=== PATIENT | female | born 1955 | race Caucasian/White ===

== ENCOUNTER 2016-10-05 11:04 | Emergency (ER) | payer BC ==
--- NOTE | 2016-10-05 12:59 | UC ---
Back Pain HPI - HPI Summary HPI Summary: 61 female presents with lower back pain that began yesterday 10/04/16 and has gotten worse upon waking up this morning. Patient stated that she was watching her grandchildren and was lifting her out of the swing when she felt that she hurt her back. She later that night lifted her grandchild again and felt pain in her lower back. Denies numbness/tingling, saddle anesthesia and bladder/ bowel incontinence. Limited ROM due to pain in all directions, hard for her to get comfortable. Standing makes the pain somewhat better. She has tried taking 3 Advil this morning without any relief. Has been applying heat which gave her some relief. States the pain is worse when she moves her right leg. Is able to bear weight and able to walk. Hx of arthritis. Points to most pain in the left lower back - History of Current Complaint Chief Complaint: UCBackPain Stated Complaint: BACK PAIN Time Seen by Provider: 10/05/16 12:12 Hx Obtained From: Patient, Family/Clerk Supervisor - Hx Last Menstrual Period: unknown ?: No Onset/Duration: Sudden Onset, Worse Since Timing: Constant Severity Initially: Mild Severity Currently: Moderate Pain Intensity: 6 Pain Scale Used: 0-10 Numeric Character: Sharp, Aching, Throbbing, Spasmodic, Stiffness Aggravating: Movement, Lifting, Bending, Walking Alleviating: Position, Heat Associated Signs And Symptoms: Positive: Negative - Allergies/Home Medications Allergies/Adverse Reactions: Allergies Allergy/AdvReac Type Severity Reaction Status Date / Time Erythromycin [From E-Mycin] AdvReac Intermediate diarrhea, Verified 10/05/16 12: 04 abd pain Home Medications: Home Medications Ibuprofen TAB* [Motrin TAB* 600 MG] 600 mg PO Q6H PRN 10/05/16 [History Confirmed 10/05/16] PMH/Surg Hx/FS Hx/Imm Hx Cardiovascular History Of: Reports: Cardiac Disorders - heart murmur, Hypertension - Surgical History Surgical History: Yes Surgery Procedure, Year, and Place: hysterectomy, bilateral knee replacements - Family History Known Family History: Positive: Hypertension - Social History Alcohol Use: None Substance Use Type: None Smoking Status (MU): Former Smoker Type: Cigarettes Have You Smoked in the Last Year: No When Did the Patient Quit Smoking/Using Tobacco: 20 yrs ago Review of Systems Constitutional: Negative Skin: Negative Eyes: Negative ENT: Negative Respiratory: Negative Cardiovascular: Negative Gastrointestinal: Negative Genitourinary: Negative Motor: Decreased ROM, Weakness Neurovascular: Negative Musculoskeletal: Arthralgia, Myalgia - back Neurological: Negative Psychological: Negative All Other Systems Reviewed And Are Negative: Yes Physical Exam Triage Information Reviewed: Yes Appearance: Well-Appearing, Well-Nourished, Pain Distress Vital Signs: Initial Vital Signs Temp 100.1 F 10/05/16 11:56 Resp 22 10/05/16 11:56 temp re-taken and 98.3F orally Vital Signs Reviewed: Yes Eyes: Positive: Conjunctiva Clear ENT Exam: Normal ENT: Positive: Normal ENT inspection, Hearing grossly normal, Pharynx normal, TMs normal, Tonsillar swelling - right tonsil slightly enlarged when compared to left side, patient admits to mild vague sore throat Dental: Negative: Cervical Lymphadenopathy Neck: Positive: Supple, Nontender Respiratory: Positive: Chest non-tender, Lungs clear, Normal breath sounds, No respiratory distress, No accessory muscle use Cardiovascular: Positive: RRR, No Murmur, Pulses Normal, Brisk Capillary Refill Abdominal Exam: Normal Abdomen Description: Positive: Nontender, No Organomegaly, Soft Bowel Sounds: Positive: Present Musculoskeletal: Positive: No Edema, Strength Limited @ - with flexion, extension, rotation lof lower back and with movement of b/l lower extremities. strength of lower extremities 3/5 due to pain. sensation and skin intact. no signs of obvious deformity, ecchymosis or erythema noted. Foot/toe strength and sensation intact and normal, ROM Limited @ Neurological Exam: Normal Psychological: Positive: Normal Response To Family, Age Appropriate Behavior Skin Exam: Normal Back Pain Course/Dx - Course Course Of Treatment: discussed option of having an x-ray and with PE findings and ABDULAZIZ this did not appear to be skeletal. patient agreed with not needed an x- ray at this time. is aware further imaging and evaluation may need to be taken if symptoms persist. she is already prescribed flexeril for restless leg syndrome and was instructed to start taking it once at night for the back pain. also given pain management for the next 5-7days. rest and heat. instructed to follow up with persistant symptoms despite current treatment. checked with [facility] Reference #: [id number] - Differential Dx/Diagnosis Differential Diagnosis/HQI/PQRI: Herniated Disc, Strain, Sprain Provider Diagnoses: lumbosacral strain Discharge - Discharge Plan Condition: Stable Disposition: HOME Prescriptions: Ibuprofen TAB* [Motrin TAB* 600 MG] 600 mg PO Q6H PRN #10 tab PRN Reason: Pain oxyCODONE/Acetamin 5/325 MG* [Percocet 5/325 TAB*] 1 tab PO Q4H PRN #5 tab MDD 4 tabs PRN Reason: Pain Patient Education Materials: Lower Back Exercises (ED), Low Back Strain (ED) Referrals: Chantal Hare MD [Primary Care Provider] - Additional Instructions: Take medication as prescribed for the next 2 days. Once you have finished taking the pain relievers, take Tylenol/Ibuprofen for pain and inflammation for the a few days. Take your prescribed Flexeril muscle relaxer, once before bed. Heat, heat, heat the area! Rest and use pain as your guide. If symptoms are not improving or worsen such as numbness/tingling, trouble going to the bathroom, unable to walk please seek medical attention promptly. If symptoms persist you may need to further evaluation and imagining. Follow-up with your primary care provider.
[2016-10-05] MEDS ORDERED: oxyCODONE/Acetamin 5/325 MG* TAB PO ONE (13:02)
[2016-10-05] MEDS ORDERED: HYDROcodone/ACETAMIN 5-325 MG* 1 TAB PO ONE (13:04)
== END 2016-10-05 13:09 | disposition home or self-care (01) ==
LOC: UCCORT 11:04
DX: S39.012A Strain of muscle, fascia and tendon of lower back, initial encounter (principal); X50.0XXA Overexertion from strenuous movement or load, initial encounter; Y93.9 Activity, unspecified; Y92.9 Unspecified place or not applicable; Z88.1 Allergy status to other antibiotic agents; Z96.653 Presence of artificial knee joint, bilateral; Z87.891 Personal history of nicotine dependence
CPT/HCPCS: 99212; A9270-GY; G0463

== ENCOUNTER 2017-10-05 10:09 | Day surgery (SDC) | payer OTHER, BC ==
[~2017-10-05 10:09] MED LIST: Buffered Lidocaine 0.9% SYRIN* 5 ML/SYR SYRINGE INTRADERM ONE; Cyclopentolate 1% OPTH.SOL* 2 ML BTL ONE; Ketorolac 0.5% OPHTH (NF) 0.5 % 5 ML BTL ONE; Lidocaine 1% MPF* 2 ML VIAL ONE; Neomycin/Polymy/Dex OPHTH.OIN* 3.5 GM ONE; Phenylephr/Ketorolac 1%/0.3% OPH DROP BTL ONE; Phenylephrine 2.5% OPTH.SOL* 2 ML BTL ONE; Tetracaine 0.5% OPTH.SOL 4 ML* 1 DROP BTL ONE; Tropicamide 1% OPTH.SOL* BTL ONE
[2017-10-05] MEDS ORDERED: fentaNYL* 50 MCG/ML 2 ML VIAL (100 MCG VIAL) ONE (11:59)
[2017-10-05] MEDS ORDERED: Midazolam* 1 MG/ML 2 ML VIAL (2 MG) ONE ×2 (11:59→12:49)
[2017-10-05] MEDS ORDERED: Phenylephr/Ketorolac 1%/0.3% OPH DROP BTL ONE (12:25)
[2017-10-05] MEDS ORDERED: BSS OPTH.SOL* BTL ONE (12:26)
[2017-10-05] MEDS ORDERED: Tetracaine 0.5% OPTH.SOL 15ML* BTL ONE (12:26)
[2017-10-05] MEDS ORDERED: Neomycin/Polymy/Dex OPHTH.OIN* 3.5 GM ONE (12:28)
[2017-10-05 13:16] VITALS: BP 143/66
--- NOTE | 2017-10-06 06:27 | OP ---
DATE OF OPERATION: 10/05/17 - [facility] DATE OF : 51 SURGEON: Dr. Peewee Cabrera. ENTRY LEVEL AUTOMOTIVE TECHNICIAN: None. ANESTHESIA: Topical with intravenous sedation. PRE-OP DIAGNOSIS: Cataract and glaucoma, right eye. POST-OP DIAGNOSIS: Cataract and glaucoma, right eye. OPERATIVE PROCEDURE: Phacoemulsification and cataract extraction with posterior chamber intraocular lens implant and iStent implant, right eye. COMPLICATIONS: None. BLOOD LOSS: None. DESCRIPTION OF PROCEDURE: The patient was brought to the operating room and given a drop of tetracaine into her right eye. She was given a small amount of intravenous sedation. The patient was prepped and draped in the usual sterile fashion for ophthalmic surgery and attention was directed to the right eye where a speculum was placed. The anterior chamber was noted to be quite shallow. The patient had been status post a laser iridotomy in his right eye. [place] was therefore added to the irrigating solution to help stabilize the pupil in a dilated position. A paracentesis was created at the 11 o'clock position and 0.1 cc of 1% preservative- free lidocaine was injected into the anterior chamber followed by DisCoVisc. The eye was digitally stabilized while a 2.75 mm keratome was used to create a triplanar clear corneal incision at the 9 o'clock position. A continuous curvilinear capsulorrhexis was created with a cystotome and Utrata forceps. The iris was noted to have a tendency to knuckle its way through the wound. It was repositioned as needed with DisCoVisc. BSS on a cannula was used to hydrodissect the lens from the capsule. Phacoemulsification was performed in a divide-and- conquer technique to create 4 fragments, which were removed. Residual cortical material was removed with irrigation and aspiration. DisCoVisc was used to inflate the capsular bag and repass the iris posterior to the wound. An AUOOTO 25 diopter lens was inserted into the capsular bag. Supplemental DisCoVisc was used to deepen the anterior chamber nasally and coat the surface of the cornea. The patient's head was rotated away from the surgeon and the microscope was rotated toward the surgeon. A gonioprism was placed on the surface of the eye. Under direct visualization, an iStent was inserted in the nasal trabecular meshwork. The iStent engineering writer and the gonioprism were removed. The patient's head and the microscope were returned to a neutral position. Irrigation and aspiration was used to remove viscoelastic from the eye. BSS on a cannula was used to hydrate the corneal stroma and seal the wound. At the end of the case, the lens was centered and stable. The iStent was in good position. The eye pressure appeared normal and the wound was watertight. The iris was completely within the eye and there was noted to be some temporal atrophy under the wound. The speculum was removed and topical Maxitrol ointment was placed on the surface of the eye. The eye was closed, patched, and shielded, and the patient was sent to the recovery room in stable condition with postop instructions and followup appointment given. [id number]/[facility] #: [id number] KRISTAN
== END 2017-10-05 13:38 | disposition home or self-care (01) ==
LOC: OREAST 10:09
PROVIDERS: ATTEND Ophthalmology
DX: H25.11 Age-related nuclear cataract, right eye (principal); H40.1111 Primary open-angle glaucoma, right eye, mild stage; I10 Essential (primary) hypertension; H01.003 Unspecified blepharitis right eye, unspecified eyelid; H04.129 Dry eye syndrome of unspecified lacrimal gland; Z87.891 Personal history of nicotine dependence; Z85.42 Personal history of malignant neoplasm of other parts of uterus; Z68.35 Body mass index [BMI] 35.0-35.9, adult; R00.2 Palpitations
CPT/HCPCS: A9270-GY; C1783; C9447; J2250; J3010; V2632

== ENCOUNTER 2017-10-12 08:19 | Day surgery (SDC) | payer BC, OTHER ==
[~2017-10-12 08:19] MED LIST changes: +Acetaminophen TAB* 325 MG PO PRN; -Cyclopentolate 1% OPTH.SOL* 2 ML BTL ONE; -Ketorolac 0.5% OPHTH (NF) 0.5 % 5 ML BTL ONE; -Lidocaine 1% MPF* 2 ML VIAL ONE; -Neomycin/Polymy/Dex OPHTH.OIN* 3.5 GM ONE; -Phenylephr/Ketorolac 1%/0.3% OPH DROP BTL ONE; -Phenylephrine 2.5% OPTH.SOL* 2 ML BTL ONE; -Tetracaine 0.5% OPTH.SOL 4 ML* 1 DROP BTL ONE; -Tropicamide 1% OPTH.SOL* BTL ONE
[2017-10-12] MEDS ORDERED: Midazolam* 1 MG/ML 2 ML VIAL (2 MG) ONE ×2 (09:42→10:07)
[2017-10-12] MEDS ORDERED: Tetracaine 0.5% OPTH.SOL 4 ML* 1 DROP BTL ONE (10:07)
[2017-10-12] MEDS ORDERED: Lidocaine 1% MPF* 2 ML VIAL ONE (10:07)
[2017-10-12] MEDS ORDERED: Phenylephrine 2.5% OPTH.SOL* 2 ML BTL ONE (10:07)
[2017-10-12] MEDS ORDERED: Ketorolac 0.5% OPHTH (NF) 0.5 % 5 ML BTL ONE (10:07)
[2017-10-12] MEDS ORDERED: Neomycin/Polymy/Dex OPHTH.OIN* 3.5 GM ONE (10:07)
[2017-10-12] MEDS ORDERED: fentaNYL* 50 MCG/ML 2 ML VIAL (100 MCG VIAL) ONE (10:07)
[2017-10-12] MEDS ORDERED: Cyclopentolate 1% OPTH.SOL* 2 ML BTL ONE (10:07)
[2017-10-12] MEDS ORDERED: Tropicamide 1% OPTH.SOL* BTL ONE (10:07)
[2017-10-12 10:52] VITALS: BP 132/66
[2017-10-12] MEDS ORDERED: Phenylephr/Ketorolac 1%/0.3% OPH DROP BTL ONE (11:34)
--- NOTE | 2017-10-13 11:04 | OP ---
DATE OF OPERATION: 10/12/17 - [facility] DATE OF : 51 SURGEON: Dr. Peewee Cabrera. GENDER STUDIES PROFESSOR: None. ANESTHESIA: Topical with intravenous sedation. PRE-OP DIAGNOSIS: Cataract and glaucoma, left eye. POST-OP DIAGNOSIS: Cataract and glaucoma, left eye. OPERATIVE PROCEDURE: Phacoemulsification and cataract extraction with posterior chamber intraocular lens implant, left eye and iStent implant, left eye. COMPLICATIONS: None. BLOOD LOSS: None. DESCRIPTION OF PROCEDURE: The patient was brought to the operating room and received a small amount of intra-venous sedation. A drop of tetracaine was placed in her left eye. The patient was prepped and draped in the usual sterile fashion for ophthalmic surgery and attention was directed to the left eye where a speculum was placed. A paracentesis was created at the 5 o'clock position and 0.1 cc of 1% preservative-free lidocaine was injected into the anterior chamber followed by DisCoVisc. The eye was digitally stabilized while a 2.75 mm keratome was used to create a triplanar clear corneal incision at the 9 o'clock position. A continuous curvilinear capsulorrhexis was created with a cystotome and Utrata forceps. BSS on a cannula was used to hydrodissect the lens from the capsule. Phacoemulsification was performed in a divide-and- conquer technique to create 4 fragments, which were removed. Residual cortical material was removed with irrigation and aspiration. DisCoVisc was used to inflate the capsular bag. An AU00T0 25.0 Diopter lens was inserted into the capsular bag. Supplemental DisCoVisc was used to deepen the anterior chamber and coat the surface of the cornea. The patient's head was rotated away from the surgeon, and the microscope was rotated toward the surgeon. A gonioprism was placed on the surface of the eye. An iStent was introduced in the anterior chamber. Under direct visualization, the iStent was inserted into the trabecular meshwork. The iStent thermal cutter hand and the gonioprism were removed. The patient's head and the microscope were returned to a neutral position. Irrigation and aspiration were performed to remove viscoelastic from the eye. BSS on a cannula was used to hydrate the corneal stroma and seal the wound. At the end of the case, the pupil was round and the lens was centered. The iStent was in good position. The eye pressure was normal and the wound was watertight. The speculum was removed and topical Maxitrol ointment was placed on the surface of the eye. The eye was closed, patched, and shielded, and the patient was sent to the recovery room in stable condition with postop instructions and followup appointment given. [id number]/[facility] #: [id number] KRISTAN
== END 2017-10-12 10:49 | disposition home or self-care (01) ==
LOC: OREAST 08:19
PROVIDERS: ATTEND Ophthalmology
DX: H25.12 Age-related nuclear cataract, left eye (principal); H40.1121 Primary open-angle glaucoma, left eye, mild stage; I10 Essential (primary) hypertension; E78.2 Mixed hyperlipidemia; Z87.891 Personal history of nicotine dependence
CPT/HCPCS: A9270-GY; C1783; C9447; J2250; J3010; V2632

== ENCOUNTER 2019-04-30 10:13 | Emergency (ER) | payer MEDICARE, OTHER ==
--- OUTSIDE RECORDS SUMMARY | 2019-04-30 10:42 | XMS REPORT | Summary of Care ---
:1955 Author Organization [facility] Address [address] [place] [address] Care Team Providers Name Role Phone Chantal Hare MD Primary Care Provider Reason for Referral Refer to Department Only (Routine) Status Reason Specialty Diagnoses / Referred By Referred To Procedures Contact Contact Authorized GENERAL SURGERY / Diagnoses Thyroid nodule [facility] General Surgery Chantal Maciel MD [address] [place] [address] Reason for Visit Reason Comments Check Up Encounter Details Date Type Department Care Team Description 04/11/2019 Office Visit [facility], Thyroid nodule (Primary Dx); Practice Chantal Maciel MD Mixed hyperlipidemia; [address] [facility] [address] [place] [address] Gastritis; [place], [place] [id number] [place] [address] Benign essential hypertension; [phone] Left foot pain; Sore throat; Impaired fasting glucose Allergies Active Allergy Reactions Severity Noted Date Comments Bisacodyl Rash 01/08/2015 Erythromycin GI Reaction 12/12/2007 documented as of this encounter (statuses as of 04/11/2019) Medications Medication Sig Dispensed Refills Start Date End Date Status Multiple Take by 0 Active Vitamins-Minerals mouth. (PX COMPLETE SENIOR MULTIVITS PO) cyclobenzaprine TAKE 1 TABLET 30 Tab 0 03/22/2019 Active (FLEXERIL) 10 MG BY MOUTH Oral TabIndications: EVERY DAY AT Low back strain, BEDTIME initial encounter NEEDED FOR SPASM Jpidwqq-Fatrbkwvf-On Take by 0 Active tamin D (CALCIUM mouth. 1200+D3 PO) Misc Natural Take by 0 Active Products mouth. (GLUCOSAMINE CHOND DOUBLE STR PO) Biotin 5000 MCG Oral Take by 0 Active Cap mouth. Latanoprost 0.005 % Place to the 0 Active Ophthalmic Emulsion external eye. triamterene-hydrochl Take 1 Tab by 90 Tab 2 04/11/2019 Active orothiazide mouth DAILY. (DYAZIDE/MAXZIDE) 37.5-25 MG Oral TabIndications: Benign essential hypertension Rosuvastatin Calcium Take 1 Tab by 90 Tab 0 04/11/2019 Active (CRESTOR) 10 MG Oral mouth DAILY. TabIndications: Mixed hyperlipidemia Omeprazole 40 MG Take 1 Cap by 90 Cap 0 04/11/2019 Active Oral CAPSULE DELAYED mouth DAILY. RELEASEIndications: Gastritis enalapril (VASOTEC) Take 1 Tab by 90 Tab 3 04/11/2019 Active 10 MG Oral mouth DAILY. TabIndications: Benign essential hypertension enalapril (VASOTEC) Take 1 Tab by 90 Tab 3 06/13/2018 04/11/20 Discontinued 10 MG Oral mouth DAILY. 19 (Reorder) TabIndications: Benign essential hypertension triamterene-hydrochl TAKE 1 TABLET 90 Tab 2 07/19/2018 04/11/20 Discontinued orothiazide BY MOUTH 19 (Reorder) (DYAZIDE/MAXZIDE) EVERY DAY 37.5-25 MG Oral Tab Omeprazole 40 MG Take 1 Cap by 90 Cap 0 02/21/2019 04/11/20 Discontinued Oral CAPSULE DELAYED mouth DAILY. 19 (Reorder) RELEASEIndications: Gastritis Rosuvastatin Calcium Take 1 Tab by 90 Tab 0 02/21/2019 04/11/20 Discontinued (CRESTOR) 10 MG Oral mouth DAILY. 19 (Reorder) TabIndications: Mixed hyperlipidemia documented as of this encounter (statuses as of 04/11/2019) Active Problems Problem Noted Date Hemorrhoids, internal 12/27/2017 Family history of coronary artery disease 09/23/2017 Heel pain, chronic, right 05/18/2017 Hx of colonic polyp 05/05/2017 DJD (degenerative joint disease) of knee 01/07/2015 Left knee DJD 11/08/2014 BMI 30.0-30.9,adult 10/10/2012 Overview: sustained wt reduction with portion control and sustained routine exercise. Set realistic goal of 1# wt reduction /week set 10 week goals. Glaucoma 10/10/2012 Overview: Followed by Dr. Cabrera in [place]. Diffuse cystic mastopathy 02/08/2008 Essential hypertension 12/12/2007 Restless legs syndrome (RLS) 12/12/2007 Overview: Uses flexeril for the same. Solitary cyst of breast 07/18/2007 documented as of this encounter (statuses as of 04/11/2019) Resolved Problems Problem Noted Date Resolved Date Osteoarthrosis, unspecified whether generalized or 01/10/2008 10/10/2012 localized, lower leg documented as of this encounter (statuses as of 04/11/2019) Immunizations Name Administration Dates Next Due Depo Medrol (80mg) 10/16/2014, 10/16/2014, 05/12/2013, 05/12/2013 Influenza (IM) Preservative Free 05/05/2017 Influenza Vaccine High Dose 06/20/2018 Lidocaine 1% (Not Billed) 10/16/2014, 10/16/2014, 05/12/2013, 05/12/2013 documented as of this encounter Social History Tobacco Use Types Packs/Day Years Used Date Former Smoker Cigarettes 2 20 Quit: 2000 Smokeless Tobacco: Never Used Comments: 2000 Alcohol Use Drinks/Week oz/Week Comments Yes seldom Sex Assigned at Date Recorded Not on file Job Start Date Occupation Industry Not on file Not on file Not on file Travel History Travel Start Travel End No recent travel history available. documented as of this encounter Last Filed Vital Signs Vital Sign Reading Time Taken Comments Blood Pressure 138/70 04/11/2019 9:47 AM EDT Pulse 87 04/11/2019 9:47 AM EDT Temperature 37.3 04/11/2019 9:47 AM EDT C (99.1 F) Respiratory Rate - - Oxygen Saturation 98% 04/11/2019 9:47 AM EDT Inhaled Oxygen Concentration - - Weight 91.6 kg (202 lb) 04/11/2019 9:47 AM EDT Height 157.5 cm (5' 2") 04/11/2019 9:47 AM EDT Body Mass Index 36.95 04/11/2019 9:47 AM EDT documented in this encounter Patient Instructions Patient InstructionsChantal Hare MD - 04/11/2019 9:40 AM EDTMedication refills sent. Continue to track Home blood pressures, which are better than here. Rapid stress screen is negative here today. I will send your throat culture result when in. I ordered a left foot xray given your foot pain. I referred you to our surgical thyroid nodule provider at [facility] for evaluation of your thyroid nodule. You will need a biopsy most likely. Continue to work on a Low fat, low salt diet and limit carbs in your diet to avoid diabetes. Please follow up in 2-3 months with me. documented in this encounter Progress Notes Chantal Hare MD - 04/11/2019 9:40 AM EDT Nursing Notes: Alyse Kramer LPN 04/11/2019 9:49 AM Signed Chief Complaint Patient presents with Check Up Chief Complaint: Sloane Cm is a 63-y.o. female who presents for follow up History of Present Illness/ROS: Her for follow up of hypertension, prediabetes, thyroid nodule found 03/24/19. It was confirmed by ultrasound. One of the nodules is over 3 cm, needs further evaluation. Patient reports of sore throat/dry throat for 2 weeks, neck was aching but no longer. No known fevers, has some chills, is tired and nervous. I last saw patient February 2018 for foot pain Patient saw Karlee Robles PNP-BC last month and a thyroid nodule was found. She was referred to Dr Garnett for this. However appointment was not until July. She now has an appointment tomorrow with Zoila. I am not sure she does thyroid nodule eval, prateek surgical thyroid eval at [facility]. She agrees with this plan. She sees Dr Carvalho for breast cancer. Her BRCA testing was negative. 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 Home BP 103-119/61-74, home glucoses in am 105-122 Review of Systems - General ROS: negative for - chills or fever, unexpected weight changes ENT ROS: has frequent sore thoat Neck discomfort, nodule in past, but better today. Respiratory ROS: negative for - cough, hemoptysis or shortness of breath Cardiovascular ROS: negative for - chest pain, dyspnea on exertion, edema or palpitations Gastrointestinal ROS: no abdominal pain, change in bowel habits, or black or bloody stools Genito-Urinary ROS: no dysuria, trouble voiding, or hematuria Neuro: denies headache, focal weakness, numbness Psych: Denies depression She complains of left dorsal foot pain for several weeks, no known injury Lab Results Component Value Date GLYCO 5.7 (H) 03/24/2019 GLYCO 5.7 (H) 02/16/2018 GLYCO 5.4 10/26/2016 Office Visit on 03/24/2019 Component Date Value Ref Range Status Free T4 03/24/2019 1.1 0.8 - 2.2 NG/DL Final T3 03/24/2019 177 80 - 200 ng/dl Final TSH 03/24/2019 0.03* 0.47 - 4.68 uIu/ml Final Cholesterol 03/24/2019 128 <200 mg/dl Final HDL Cholesterol 03/24/2019 46* >50 mg/dl Final Triglycerides 03/24/2019 58 <150 mg/dl Final LDL Cholesterol 03/24/2019 70 <100 MG/DL Final Cholesterol / HDL Ratio 03/24/2019 2.8 RATIO Final LDL / HDL Ratio 03/24/2019 1.5 Final Non-HDL Cholesterol 03/24/2019 82 0 - 130 MG/DL Final Glycohemoglobin A1C 03/24/2019 5.7* <=5.6 % Final Normal*: <=5.6% Pre Diabetes* Risk: 5.7-6.4% Diabetes* Risk: >=6.5% Glycemic Goals for Adult Diabetes*: <7.0% *(Adult Ranges)[place] [employer], Standards of Medical Care in Diabetes, 2018 Sodium 03/24/2019 138 134 - 145 mmol/L Final Potassium 03/24/2019 4.0 3.5 - 5.1 mmol/L Final Chloride 03/24/2019 98 98 - 107 mmol/L Final CO2 03/24/2019 30 22 - 30 mmol/L Final Calcium 03/24/2019 10.2* 8.3 - 10.1 mg/dl Final Albumin 03/24/2019 4.6 3.5 - 5.0 g/dl Final BUN 03/24/2019 17 7 - 17 mg/dl Final Creatinine 03/24/2019 0.6* 0.7 - 1.2 mg/dl Final Glucose 03/24/2019 110* 70 - 99 mg/dl Final Total Protein 03/24/2019 8.1 6.3 - 8.2 g/dl Final Total Bilirubin 03/24/2019 0.7 0.0 - 1.1 MG/DL Final AST 03/24/2019 31 15 - 46 U/L Final ALT 03/24/2019 26 9 - 52 U/L Final Alkaline Phosphatase 03/24/2019 66 40 - 150 U/L Final eGFR 03/24/2019 >60 See Interpretation Below ml/min/1.73ml Sq Final Estimated GFR Interpretation: Above 60ml/min/1.73m2 = Normal Renal Function 30-59 ml/min/1.73m2 = Stage 3 Chronic Kidney Disease 15-29 ml/min/1.73m2 = Stage 4 Chronic Kidney Disease Less than 15 ml/min/1.73m2 = Stage 5 Chronic Kidney Disease The GFR value is calculated using the Modification of Diet in Renal Disease ( MDRD) Study Equation which can be found at: https://www.kidney.org/content/bxaw-lnioj-zpseqyst BUN/Creatinine Ratio 03/24/2019 28* 6 - 22 RATIO Final Anion Gap 03/24/2019 10 3 - 11 mmol/L Final A/G Ratio 03/24/2019 1.3 0.8 - 2.0 ratio Final US SOFT TISSUE HEAD NECK ULTRASOUND Narrative: Procedure(s): US SOFT TISSUE HEAD NECK ULTRASOUND Date of service: 03/24/2019 11:30 AM Provided clinical information: 63 years, Female, "Neck mass, nonpulsatile, solitary" Technique: An ultrasound of the thyroid gland was performed utilizing grayscale technique with color duplex Doppler interrogation. Findings: The thyroid parenchyma demonstrates normal echogenicity and echotexture. There is no increased parenchymal flow upon color Doppler interrogation. The right thyroid gland measures 5.2 x 2.9 x 3.2 cm. The left thyroid gland measures 3.6 x 1.1 x 1.1 cm. There are numerous bilateral thyroid nodules. Bobbin Winder Tender nodules include: Right thyroid gland: - 3.3 x 2.5 x 2.6 cm mixed cystic and solid nodule, having smooth margins and wider than tall. Left thyroid gland: - 7 x 3 x 4 mm, solid nodule hypoechoic to thyroid parenchyma having smooth margins and wider than tall. - 9 x 5 x 7 mm, solid nodule hypoechoic to thyroid parenchyma, wider than tall with smooth margins. Impression: Impression: Large mixed cystic and solid right thyroid nodule meeting imaging criteria for tissue sampling. Signed by Meek Love MD on 03/28/2019 5:06 PM Past Medical History: Diagnosis Date Hypertension 12/12/2007 Cancer (HCC) uterine cancer, s/p Swati 1995 Heart murmur no h/o echo, intermittent. History of breast surgery Hypertension Other postprocedural status(V45.89) benign both breasts biopsy Postmenopausal hysterectomy Restless legs syndrome (RLS) 12/12/2007 Restless legs syndrome (RLS) Uterine cancer (HCC) 2000 SWATI,checked yearly. Past Surgical History: Procedure Laterality Date COLONOSCOPY 09/2012 diverticulosis--next colonoscopy recommended 2017 OTHER REPAIR OF KNEE Left 11/29/2014 Dr. James, right 3 months after.; partial knee replacements OTHER REPAIR OF KNEE Right 01/17/15 Dr. James [place] REMOVAL OF OVARY/TUBE(S) 2000 [place] TOTAL ABDOM HYSTERECTOMY TOTAL ABD HYSTERECTOMY 2000 US GUIDANCE FOR NEEDLE PLACEMENT 2000 bilat Current Outpatient Medications: Biotin 5000 MCG Oral Cap, Take by mouth., Disp: , Rfl: Yiebxte-Abujiblwp-Imteoaz D (CALCIUM 1200+D3 PO), Take by mouth., Disp : , Rfl: cyclobenzaprine (FLEXERIL) 10 MG Oral Tab, TAKE 1 TABLET BY MOUTH EVERY DAY AT BEDTIME NEEDED FOR SPASM, Disp: 30 Tab, Rfl: 0 enalapril (VASOTEC) 10 MG Oral Tab, Take 1 Tab by mouth DAILY., Disp: 90 Tab, Rfl: 3 Latanoprost 0.005 % Ophthalmic Emulsion, Place to the external eye., Disp: , Rfl: Misc Natural Products (GLUCOSAMINE CHOND DOUBLE STR PO), Take by mouth. , Disp: , Rfl: Multiple Vitamins-Minerals (PX COMPLETE SENIOR MULTIVITS PO), Take by mouth., Disp: , Rfl: Omeprazole 40 MG Oral CAPSULE DELAYED RELEASE, Take 1 Cap by mouth DAILY., Disp: 90 Cap, Rfl: 0 Rosuvastatin Calcium (CRESTOR) 10 MG Oral Tab, Take 1 Tab by mouth DAILY., Disp: 90 Tab, Rfl: 0 triamterene-hydrochlorothiazide (DYAZIDE/MAXZIDE) 37.5-25 MG Oral Tab, Take 1 Tab by mouth DAILY., Disp: 90 Tab, Rfl: 2 Allergies Allergen Reactions Bisacodyl Rash Erythromycin GI Reaction Social History Socioeconomic History Marital status: Spouse name: Not on file Number of children: Not on file Years of education: Not on file Highest education level: Not on file Occupational History Not on file Social Needs Financial resource strain: Not on file Food insecurity: Worry: Not on file Inability: Not on file Transportation needs: Medical: Not on file Non-medical: Not on file Tobacco Use Smoking status: Former Smoker Packs/day: 2.00 Years: 20.00 Pack years: 40.00 Types: Cigarettes Last attempt to quit: 2000 Years since quittin.6 Smokeless tobacco: Never Used Tobacco comment: 2000 Substance and Sexual Activity Alcohol use: Yes Comment: seldom Drug use: No Sexual activity: Yes Partners: Male Comment: Lifestyle Physical activity: Days per week: Not on file Minutes per session: Not on file Stress: Not on file Relationships Social connections: Talks on phone: Not on file Gets together: Not on file Attends jainism service: Not on file Active member of club or organization: Not on file Attends meetings of clubs or organizations: Not on file Relationship status: Not on file Intimate partner violence: Fear of current or ex partner: Not on file Emotionally abused: Not on file Physically abused: Not on file Forced sexual activity: Not on file Other Topics Concern Back Care Not Asked Bike Helmet Not Asked Blood Transfusions No Caffeine Concern Not Asked Exercise No Comment: none formal Hobby Hazards Not Asked International Travel Not Asked Service Not Asked Occupational Exposure Not Asked Seat Belt Not Asked Self-Exams Not Asked Sleep Concern Not Asked Special Diet Not Asked Stress Concern Yes Comment: extended family lives with her Weight Concern Not Asked Social History Narrative 3 children Homemaker Routine exercise: Pets: 2 dogs Family History Problem Relation Age of Onset Breast Cancer Sister dx early 40s, 2015 / / bladder and lungs Cancer Sister breast then lung cancer Cancer Mother 76 ovarian CA Arthritis Mother Hypertension Mother Diabetes Mother Heart Father at age 62, [place] Arthritis Father Heart Disease Father Hypertension Father Stroke Father Diabetes Father No Known Problems Sister No Known Problems Child No Known Problems Child No Known Problems Child No Known Problems Sister No Known Problems Brother Anesth Problems No family history Clotting Disorder No family history Kidney Disease No family history Thyroid Disease No family history PHYSICAL EXAMINATION: BP 138/70 (BP Location: Right arm, Patient Position: Sitting) | Pulse 87 | Temp 99.1 F (37.3 C) (Tympanic) | Ht 5' 2" (1.575 m) | Wt 202 lb ( 91.6 kg) | SpO2 98% | ? No | BMI36.95 kg/m Physical Examination: General appearance - alert, well appearing, and in no distress Mental status - alert, oriented to person, place, and time, normal mood, behavior, speech, dress, motor activity, and thought processes Eyes - pupils equal and reactive, extraocular eye movements intact, sclera anicteric, conjunctiva slightly injected, no exudate Ears - bilateral TM's and external ear canals normal Throat: Mild erythema, No exudate, she has a right tonsillar telangectasia/ blood blister that she says she has had for years without change. Neck - supple, no cervical or supraclavicular adenopathy, carotids upstroke normal bilaterally, no bruits, thyroid exam: thyroid has a left sided palpable nodule, no tenderness, no neck masses palpated. Chest/Lungs - clear to auscultation, no wheezes, rales or rhonchi, symmetric air entry, good aeration Heart - normal rate, regular rhythm, normal S1, S2, no murmurs, rubs, clicks or gallops Abdomen - soft, non tender on palpation, nondistended, no masses or hepatosplenomegaly, bowel soundsnormal, normal to percussion, no guarding or rebound. No costervertebral angle tenderness Neurological - alert, oriented, normal speech, no gross focal findings or movement disorder noted Extremities - dorsalis pedis pulses normal, no pedal edema, no clubbing or cyanosis ASSESSMENT/PLAN: ICD-9-CM ICD-10-CM 1. Thyroid nodule 241.0 E04.1 REFER TO GENERAL SURGERY 2. Mixed hyperlipidemia 272.2 E78.2 Rosuvastatin Calcium (CRESTOR) 10 MG Oral Tab 3. Gastritis 535.50 K29.70 Omeprazole 40 MG Oral CAPSULE DELAYED RELEASE 4. Benign essential hypertension 401.1 I10 triamterene-hydrochlorothiazide ( DYAZIDE/MAXZIDE) 37.5-25MG Oral Tab enalapril (VASOTEC) 10 MG Oral Tab 5. Left foot pain 729.5 M79.672 XR FOOT MIN 3 VIEWS LEFT (STANDARD) 6. Sore throat 462 J02.9 STREP A ANTIGEN (AMB POCT) THROAT STREP SCREEN CULTURE THROAT STREP SCREEN CULTURE 7. Impaired fasting glucose 790.21 R73.01 Medication refills sent. Continue to track Home blood pressures, which are better than here. Rapid stress screen is negative here today. I will send your throat culture result when in. I ordered a left foot xray given your foot pain. I referred you to our surgical thyroid nodule provider at [facility] for evaluation of your thyroid nodule. You will need a biopsy most likely. Continue to work on a Low fat, low salt diet and limit carbs in your diet to avoid diabetes. Please follow up in 2-3 months with me. Author: Chantal Hare MD 04/11/2019 11:14 documented in this encounter Plan of Treatment Date Type Specialty Care Team Description 04/20/2019 Office Visit General Surgery Chava Gonzalez MD [address] [address] [phone] 05/22/2019 Ancillary Procedure Radiology 05/22/2019 Ancillary Procedure Radiology 06/05/2019 Office Visit General Surgery Denzel Kearney MD [address] [address] [phone] Name Type Priority Associated Diagnoses Date/Time XR FOOT MIN 3 VIEWS Imaging Routine Left foot pain 04/11/2019 10:49 AM EDT LEFT (STANDARD) THROAT STREP SCREEN Lab Routine Sore throat 04/11/2019 10:25 AM EDT CULTURE Name Type Priority Associated Diagnoses Order Schedule XR FOOT MIN 3 VIEWS Imaging Routine Left foot pain Expected: 04/11/2019, LEFT (STANDARD) Expires: 04/10/2020 THROAT STREP SCREEN Lab Routine Sore throat 1 Occurrences starting CULTURE 04/11/2019 until 10/08/2019 Name Type Priority Associated Diagnoses Order Schedule REFER TO GENERAL Referral Routine Thyroid nodule Expected: 04/11/2019, SURGERY Expires: 04/11/2020 Health Maintenance Due Date Last Done Comments MEDICARE ANNUAL WELLNESS 1955 VISIT ZOSTER IMMUNIZATION SERIES 2003 (1 of 2) LUNG CANCER SCREENING 10/26/2017 10/26/2016 (Declined) OSTEOPOROSIS SCREENING 2018 PNEUMOCOCCAL 65+YRS (1 of 2 2018 - PCV13) MAMMOGRAM (SCREENING) 11/05/2019 11/04/2018, 08/24/2017, 08/24/2016, Additional history exists FALL RISK ASSESSMENT 11/29/2019 11/28/2018, 11/28/2018 DEPRESSION SCREENING 03/24/2020 03/24/2019 DIABETES SCREENING 03/24/2020 03/24/2019, 03/24/2019, 02/16/2018, Additional history exists LIPID DISORDER SCREENING 04/11/2020 04/11/2019, 03/24/2019, 09/23/2017, Additional history exists COLONOSCOPY SCREENING 08/26/2027 08/26/2017, 10/04/2012 HPV IMMUNIZATION SERIES Aged Out No longer eligible based on patient's age to complete this topic MENINGOCOCCAL VACCINE IMM Aged Out No longer eligible based on patient's age to complete this topic documented as of this encounter Goals Goal Patient Goal Associated Recent Patient-Stated? Author Type Problems Progress Blood Pressure Blood 138/70 Ada Hare, < 150/90 Pressure (04/11/2019 Chantal Maciel, 9:47 AM EDT) Note: This is an individualized treatment (blood pressure) goal for Sloane Cm: Displayed above (on the left) is your goal for blood pressure control. Your most recent blood pressure is also shown above, on the right. You should try to achieve blood pressures that are lower than your goal listed above (on the left). Weight loss vs. 18 Lifestyle 12 (04/11/2019 9:47 AM No Chantal Hare, mo max (lbs) >= 10 EDT) Note: This is an individualized lifestyle goal for Sloane Cm: Your body mass index (BMI) is more than 30. You should lose weight. A reasonable starting goal is to lose 10 pounds. Displayed above is how many pounds you have lost thus far towards your 10 pound weight loss goal. Take all prescribed medications as Self-management Chantal Edward MD directed Note: This is an individualized self-management goal for Sloane Cm: Please take all prescribed medications as directed. 1. Do not skip doses. If you cannot afford your medications, talk with your doctor. 2. Use a pill reminder system such as a pill box if needed. Your pharmacist can help you with this. 3. Contact your Pharmacy 5 days before your medication runs out. If you cannot take your medications for any reasons, talk with your doctor. 4. Please bring all of your medication bottles and inhalers (or a list of all your medications/inhalers) with you to every visit. Potential barriers to meeting all of your care plan goals will continue to be addressed on an ongoing basis. documented as of this encounter Implants Implanted Type Area Security Associate Device Shelf Model / Identifier Expiration Date Serial / Lot Bone Cement, 40gm Full Dose - [id number] Left: DEPUY 03/08/2016 [id number] / Implanted: Qty: 1 on 11/29/2014 by Seth Jamse MD at [facility] Knee / [id number] Tibial Baseplate Std Lm/Rl Size 4 - [id number] Left: SONIA, NOEMÍ. 06/08 [id number] / Implanted: Qty: 1 on 11/29/2014 by Seth James MD at [facility] Knee / [id number] Femoral Condyle Std Lm/Rl Size 3 - [id number] Left: SONIA, NOEMÍ. 2018 [id number] / Implanted: Qty: 1 on 11/29/2014 by Seth James MD at [facility] Knee / [id number] Tibal Insert Onlay Size 4 , 8mm Thick - [id number] Left: SONIA, NOEMÍ. 09/08/2019 [id number] / Implanted: Qty: 1 on 11/29/2014 by Seth James MD at [facility] Knee / [id number] Bone Cement, 40gm Full Dose - [id number] Right: DEPUY 03/08/2016 [id number] / Implanted: Qty: 1 on 01/17/2015 by Seth James MD at [facility] Knee / [id number] Femoral Condyle Std Rm/Ll Size 3 - [id number] Right: SONIA, NOEMÍ. 12/06 [id number] / Implanted: Qty: 1 on 01/17/2015 by Seth James MD at [facility] Knee / [id number] Tibal Baseplate Std Rm/Ll Size 3 - [id number] Right: SONIA, NOMEÍ. 02/05 [id number] / Implanted: Qty: 1 on 01/17/2015 by Seth James MD at [facility] Knee / [id number] Tibal Insert Onlay Size 3, 9mm Thick - [id number] Right: SONIA, NOEMÍ. 08/08/2019 [id number] / Implanted: Qty: 1 on 01/17/2015 by Seth James MD at [facility] Knee / [id number] documented as of this encounter Procedures Procedure Name Priority Date/Time Associated Diagnosis Comments STREP A ANTIGEN Routine 04/11/2019 10:25 AM Sore throat Results for this (AMB POCT) EDT procedure are in the results section. documented in this encounter Results STREP A ANTIGEN (AMB POCT) (04/11/2019 10:25 AM EDT) Strep A Antigen Negative Negative [facility] (POCT) POCT Control Line Present Present [facility] POCT Strep A Antigen Yes, Sent for [facility] Confirm (POCT) Confirmation POCT Lot Number [id number] [facility] POCT Expiration Date 01/06/20 [facility] POCT Specimen Performing Organization Address City/State/Zipcode Phone Number [facility] [address] [place] [address] documented in this encounter Visit Diagnoses Diagnosis Thyroid nodule - Primary Nontoxic uninodular goiter Mixed hyperlipidemia Gastritis Unspecified gastritis and gastroduodenitis without mention of hemorrhage Benign essential hypertension Essential hypertension, benign Left foot pain Pain in limb Sore throat Acute pharyngitis Impaired fasting glucose documented in this encounter Insurance Payer Benefit Plan / Subscriber ID Effective Dates Phone Address Type Group MEDICARE MEDICARE PART xxxxxxxxxxx 2018-Prese Medicare A & B nt [facility] [employer] [facility] [employer] xxxxxxxxx 2015-[facility] BCBS NATIONAL BCBS NATIONAL xxxxxxxxxxxx 2016-Jamie Steven t Cross/Blue Shield Guarantor Name Account Type Relation to Date of Phone Billing Patient Address Sloane Cm Personal/Family 1955 [address] (Home) [address] [facility] [phone] [place], [place] (Work) [address] documented as of this encounter
--- OUTSIDE RECORDS SUMMARY | 2019-04-30 10:42 | XMS REPORT | Summary of Care ---
:1955 Author Organization [facility] Address [address] [address] Care Team Providers Name Role Phone Chantal Hare MD Primary Care Provider Reason for Referral MRI/CAT/PET Scan (Routine) Status Reason Specialty Diagnoses / Referred By Referred To Procedures Contact Contact Authorized Diagnoses Thyroid nodule Hyperthyroidism Chava Gonzalez, Procedures NM THYROID IMAGING MD [address] [address] Reason for Visit Reason Comments Surgery Consult NEW, Thyroid biopsy Refer to Department Only (Routine) Status Reason Specialty Diagnoses / Referred By Referred To Procedures Contact Contact Closed GENERAL SURGERY / Diagnoses Thyroid nodule Ananya General Surgery Chantal Maciel MD [address] [place] [address] Encounter Details Date Type Department Care Team Description 04/20/2019 Office Visit Jose General Chava Gonzalez, Hyperthyroidism ( Primary Dx); Surgery Thyroid nodule [address] [id number] [address] [place] [address] Allergies Active Allergy Reactions Severity Noted Date Comments Bisacodyl Rash 01/08/2015 Erythromycin GI Reaction 12/12/2007 documented as of this encounter (statuses as of 04/20/2019) Medications Medication Sig Dispensed Refills Start Date End Date Status Multiple Take by 0 Active Vitamins-Minerals mouth. (PX COMPLETE SENIOR MULTIVITS PO) Gushboq-Cfykckotb-Tn Take by 0 Active tamin D (CALCIUM mouth. 1200+D3 PO) Misc Natural Take by 0 Active Products mouth. (GLUCOSAMINE CHOND DOUBLE STR PO) Biotin 5000 MCG Oral Take by 0 Active Cap mouth. triamterene-hydrochl Take 1 Tab by 90 Tab [...] Oral mouth DAILY. TabIndications: Benign essential hypertension Amoxicillin 500 MG Take 1 Tab by 20 Tab 0 04/13/2019 04/23/20 Active Oral Tab mouth TWICE 19 DAILY for 10 days. cyclobenzaprine TAKE 1 TABLET 30 Tab 5 04/19/2019 Active (FLEXERIL) 10 MG BY MOUTH Oral TabIndications: EVERY DAY AT Low back strain, BEDTIME initial encounter NEEDED FOR SPASM Latanoprost 0.005 % Place to the 0 04/20/20 Discontinued Ophthalmic Emulsion external eye. 19 (Error) documented as of this encounter (statuses as of 04/20/2019) Active Problems Problem Noted Date Hemorrhoids, internal [...] 10/10/2012 Overview: Followed by Dr. Cabrera in [place]. Diffuse cystic mastopathy 02/08/2008 Essential hypertension 12/12/2007 Restless legs syndrome (RLS) 12/12/2007 Overview: Uses flexeril for the same. Solitary cyst of breast 07/18/2007 documented as of this encounter (statuses as of 04/20/2019) Resolved Problems Problem Noted Date Resolved Date Osteoarthrosis, unspecified whether generalized or 01/10/2008 10/10/2012 localized, lower leg documented as of this encounter (statuses as of 04/20/2019) Immunizations Name Administration Dates Next Due Depo [...] Sign Reading Time Taken Comments Blood Pressure - - Pulse - - Temperature - - Respiratory Rate - - Oxygen Saturation - - Inhaled Oxygen Concentration - - Weight 91.6 kg (202 lb) 04/20/2019 10:38 AM EDT Height 160 cm (5' 3") 04/20/2019 10:38 AM EDT Body Mass Index 35.78 04/20/2019 10:38 AM EDT documented in this encounter Progress Notes Chava Gonzalez MD - 04/20/2019 10:45 AM EDT PATIENT: Sloane Cm : 1955 DATE OF SERVICE: 04/20/2019 REFERRING PRACTITIONER: Chantal Hare PRIMARY CARE PROVIDER: Chantal Hare CHIEF COMPLAINT: Chief Complaint Patient presents with Surgery Consult NEW, Thyroid biopsy Subjective HISTORY OF PRESENT ILLNESS: Sloane Cm is a 63-y.o. female who presents for a consultation with a thyroid nodule. She recently noted some swelling in her neck and was noted to have a 3.3 cm mixed cystic and solid nodule in her thyroid lobe as well as 2 &lt ; 1 cm nodules in her left lobe. There is a FH of thyroid disease. She has had low TSH since 2017. She admits to some neck fullness and heat ntolerance as well as palpitations and nervousness consistent with hyperthyroidism. Past Medical History: Diagnosis Date Hypertension 12/12/2007 Cancer (HCC) uterine cancer, s/p [place] 1995 Heart murmur no h/o echo, intermittent. History of breast surgery Hypertension Other postprocedural status(V45.89) benign both breasts biopsy Postmenopausal hysterectomy Restless legs syndrome (RLS) 12/12/2007 Restless legs syndrome (RLS) Uterine cancer (HCC) 2000 [place],checked yearly. Past Surgical History: Procedure Laterality Date COLONOSCOPY 09/2012 diverticulosis--next colonoscopy recommended 2017 OTHER REPAIR OF KNEE Left 11/29/2014 Dr. James, right 3 months after.; partial knee replacements OTHER REPAIR OF KNEE Right 01/17/15 Dr. James [place] REMOVAL OF OVARY/TUBE(S) 2000 [place] TOTAL ABDOM HYSTERECTOMY TOTAL ABD HYSTERECTOMY 2000 [place] GUIDANCE FOR NEEDLE PLACEMENT 2000 bilat Family History Problem Relation Age of Onset Breast Cancer Sister dx early 40s, 2014 / bladder and lungs Cancer Sister breast then lung cancer Cancer Mother 76 ovarian CA Arthritis Mother Hypertension Mother Diabetes Mother Heart Father at age 62, [place] Arthritis Father Heart Disease Father Hypertension Father Stroke Father Diabetes Father No Known Problems Sister No Known Problems Child No Known Problems Child No Known Problems Child No Known Problems Sister No Known Problems Brother Anesth Problems No family history Clotting Disorder No family history Kidney Disease No family history Thyroid Disease No family history Current Outpatient Medications Medication Sig Amoxicillin 500 MG Oral Tab Take 1 Tab by mouth TWICE DAILY for 10 days. Biotin 5000 MCG Oral Cap Take by mouth. Ditnomz-Mdvejdfwd-Tnxqksa D (CALCIUM 1200+D3 PO) Take by mouth. cyclobenzaprine (FLEXERIL) 10 MG Oral Tab TAKE 1 TABLET BY MOUTH EVERY DAY AT BEDTIME NEEDED FOR SPASM enalapril (VASOTEC) 10 MG Oral Tab Take 1 Tab by mouth DAILY. Misc Natural Products (GLUCOSAMINE CHOND DOUBLE STR PO) Take by mouth. Multiple Vitamins-Minerals (PX COMPLETE SENIOR MULTIVITS PO) Take by mouth. Omeprazole 40 MG Oral CAPSULE DELAYED RELEASE Take 1 Cap by mouth DAILY. Rosuvastatin Calcium (CRESTOR) 10 MG Oral Tab Take 1 Tab by mouth DAILY. triamterene-hydrochlorothiazide (DYAZIDE/MAXZIDE) 37.5-25 MG Oral Tab Take 1 Tab by mouth DAILY. No current facility-administered medications for this visit. Allergies Allergen Reactions Bisacodyl Rash Erythromycin GI [...] Last attempt to quit: 2000 Years since quittin.7 Smokeless tobacco: Never Used Tobacco comment: 2000 Substance and Sexual Activity Alcohol use: Yes Comment: seldom Drug use: No Sexual activity: Yes Partners: Male Comment: Lifestyle Physical activity: Days per week: Not on file Minutes per session: Not on file Stress: Not on file Relationships Social connections: Talks on phone: Not on file Gets together: Not on file Attends confucianism service: Not on file Active member of [...] children Homemaker Routine exercise: Pets: 2 dogs Current employment: retired REVIEW OF SYSTEMS: All remaining review of systems was negative except for as noted in the history of present illness/subjective. Objective PHYSICAL EXAMINATION: VITALS: Ht 5' 3" (1.6 m) | Wt 202 lb (91.6 kg) | BMI 35.78 kg/m Body mass index is 35.78 kg/m. GENERAL: alert, oriented, no acute distress. SKIN: normal, no rashes or abnormalities noted. HEENT: sclera normal, anicteric, mucous membrane moist, conjunctiva pink and pale, normal dentition. NECK: no mass, no adenopathy, There is a 3 cm in the right thyroid lobe.. LUNGS: clear to auscultation bilaterally. HEART: regular rhythm, no murmurs, no gallops, no rubs. EXTREMITIES: no clubbing, cyanosis, or edema. NEUROLOGICAL: alert and oriented x3. ABDOMEN: benign. RECTAL: exam deferred. IMPRESSION: ICD-9-CM ICD-10-CM 1. Hyperthyroidism 242.90 E05.90 2. Thyroid nodule 241.0 E04.1 REFER TO GENERAL SURGERY PLAN: Thyroid scan then return. Author: Chava Gonzalez MD 04/20/2019 10:52 documented in this encounter Plan of Treatment Date Type Specialty Care Team Description 05/22/2019 Ancillary Procedure Radiology 05/22/2019 Ancillary Procedure Radiology 06/05/2019 Office Visit General Surgery Denzel Kearney MD [address] [address] [phone] Name Type Priority Associated Diagnoses Order Schedule NM THYROID IMAGING Imaging Routine Thyroid nodule Ordered: 04/20/2019 Hyperthyroidism Health Maintenance Due Date Last Done Comments [...] Type Problems Progress Blood Pressure Blood 138/70 No Ananya, < 150/90 Pressure (04/11/2019 Chantal Maciel, 9:47 [...] left). Weight loss vs. 18 Lifestyle 12 (04/20/2019 10:38 AM No Chantal Hare mo max (lbs) >= 10 EDT) Note: This is an individualized lifestyle goal for Sloane Cm: Your body mass index (BMI) is more than 30. You should lose weight. A reasonable starting goal is to lose 10 pounds. Displayed above is how many pounds you have lost thus far towards your 10 pound weight loss goal. Take all prescribed medications as Self-management No Chantal Hare MD directed Note: This is an individualized [...] of this encounter Implants Implanted Type Area Test Car Driver Device Shelf Model / Identifier Expiration Date Serial / Lot Bone Cement, 40gm Full Dose - [id number] Left: DEPUY 03/08/2016 [id number] / Implanted: Qty: 1 on 11/29/2014 by Seth James MD at [facility] Knee / [id number] Tibial Baseplate Std Lm/Rl Size 4 - [id number] Left: SONIA, NOEMÍ. 06/08 [id number] / Implanted: Qty: 1 on 11/29/2014 by Seth James MD at [facility] Knee / [id number] Femoral Condyle Std Lm/Rl Size 3 - [id number] Left: SONIA, NOEMÍ. 2018 [id number] / Implanted: Qty: 1 on 11/29/2014 by Seth James MD at [facility] Knee / [id number] Tibal Insert Onlay Size 4 , 8mm Thick - [id number] Left: SONIA, NOEMÍ. 09/08/2019 [id number] / Implanted: Qty: 1 on 11/29/2014 by Seth James MD at [facility] Knee / [id number] Bone Cement, 40gm Full Dose - [id number] Right: DEPUY 03/08/2016 [id number] / Implanted: Qty: 1 on 01/17/2015 by Seth James MD at [facility] Knee / [id number] Femoral Condyle Std Rm/Ll Size 3 - [id number] Right: SONIA, NOEMÍ. 12/06 [id number] / Implanted: Qty: 1 on 01/17/2015 by Seth James MD at [facility] Knee / [id number] Tibal Baseplate Std Rm/Ll Size 3 - [id number] Right: SONIA, NOEMÍ. 02/05 [id number] / Implanted: Qty: 1 on 01/17/2015 by Seth James MD at [facility] Knee / [id number] Tibal Insert Onlay Size 3, 9mm Thick - [id number] Right: SONIA, NOEMÍ. 08/08/2019 [id number] / Implanted: Qty: 1 on 01/17/2015 by Seth James MD at [facility] Knee / [id number] documented as of this encounter Results Not on filedocumented in this encounter Visit Diagnoses Diagnosis Hyperthyroidism - Primary Thyrotoxicosis without mention of goiter or other cause, without mention of thyrotoxic crisis or storm Thyroid nodule Nontoxic uninodular goiter documented in this encounter Insurance Payer Benefit Plan / Subscriber ID Effective Dates Phone Address Type Group MEDICARE MEDICARE PART xxxxxxxxxxx 2018-Prese Medicare A & B [facility] [employer] [facility] xxxxxxxxx 2015-Prese Emble nt BCBS [facility] BCBS NATIONAL xxxxxxxxxxxx 2016-Jamie Blue t Cross/Blue Shield Guarantor Name Account Type Relation to Date of Phone Billing Patient Address Sloane Cm Personal/Family 1955 [address] (Home) [address] [facility] [phone] [place], [place] (Work) [address] documented as of this encounter
--- OUTSIDE RECORDS SUMMARY | 2019-04-30 10:42 | XMS REPORT | Summary of Care ---
:1955 Author Organization [facility] Address [address] [place] [address] Care Team Providers Name Role Phone Chantal Hare MD Primary Care Provider Reason for Referral MRI/CAT/PET Scan (Routine) Status Reason Specialty Diagnoses / Procedures Referred By Contact Referred To Contact Closed Diagnoses Neck mass Karlee Robles, [facility] Procedures US SOFT TISSUE HEAD NECK ULTRASOUND [address] [place] [address] Reason for Visit Reason Comments Swollen Glands right side of neck a week ago, hurts to cough and swallow, last thyroid tests 12/2017 Encounter Details Date Type Department Care Team Description 03/24/2019 Office Visit [facility] Karlee Robles, Neck mass (Primary Dx); Practice [facility] Malaise and fatigue [address] [place] [address] [place] [address] [phone] Allergies Active Allergy Reactions Severity Noted Date Comments Bisacodyl Rash 01/08/2015 Erythromycin GI Reaction 12/12/2007 documented as of this encounter (statuses as of 03/24/2019) Medications Medication Sig Dispensed Refills Start Date End Date Status Multiple Take by mouth. 0 Active Vitamins-Minerals (PX COMPLETE SENIOR MULTIVITS PO) enalapril (VASOTEC) 10 Take 1 Tab by 90 Tab 3 06/13/2018 Active MG Oral TabIndications: mouth DAILY. Benign essential hypertension triamterene-hydrochlorot TAKE 1 TABLET BY 90 Tab 2 07/19/2018 Active hiazide MOUTH EVERY DAY (DYAZIDE/MAXZIDE) 37.5-25 MG Oral Tab Omeprazole 40 MG Oral Take 1 Cap by 90 Cap 0 02/21/2019 Active CAPSULE DELAYED mouth DAILY. RELEASEIndications: Gastritis Rosuvastatin Calcium Take 1 Tab by 90 Tab 0 02/21/2019 Active (CRESTOR) 10 MG Oral mouth DAILY. TabIndications: Mixed hyperlipidemia cyclobenzaprine TAKE 1 TABLET BY 30 Tab 0 03/22/2019 Active (FLEXERIL) 10 MG Oral MOUTH EVERY DAY TabIndications: Low back AT BEDTIME strain, initial NEEDED FOR SPASM encounter documented as of this encounter (statuses as of 03/24/2019) Active Problems Problem Noted Date Hemorrhoids, internal [...] 10/10/2012 Overview: Followed by Dr. Cabrera in [place]. Diffuse cystic mastopathy 02/08/2008 Essential hypertension 12/12/2007 Restless legs syndrome (RLS) 12/12/2007 Overview: Uses flexeril for the same. Solitary cyst of breast 07/18/2007 documented as of this encounter (statuses as of 03/24/2019) Resolved Problems Problem Noted Date Resolved Date Osteoarthrosis, unspecified whether generalized or 01/10/2008 10/10/2012 localized, lower leg documented as of this encounter (statuses as of 03/24/2019) Immunizations Name Administration Dates Next Due Depo [...] Sign Reading Time Taken Comments Blood Pressure 148/82 03/24/2019 10:58 AM EDT Pulse 96 03/24/2019 10:58 AM EDT Temperature 37.3 03/24/2019 10:58 AM EDT C (99.2 F) Respiratory Rate - - Oxygen Saturation - - Inhaled Oxygen Concentration - - Weight 93 kg (205 lb) 03/24/2019 10:58 AM EDT Height 157.5 cm (5' 2") 03/24/2019 10:58 AM EDT Body Mass Index 37.49 03/24/2019 10:58 AM EDT documented in this encounter Patient Instructions Patient InstructionsKarlee Robles FNP - 03/24/2019 11:00 AM EDTLabs today Schedule ultrasound documented in this encounter Progress Notes Karlee Robles FNP - 03/24/2019 11:00 AM EDT PATIENT: Sloane Cm : 1955 DATE OF SERVICE: 03/24/2019 CHIEF COMPLAINT: Chief Complaint Patient presents with Swollen Glands right side of neck a week ago, hurts to cough and swallow, last thyroid tests 12/2017 Subjective HISTORY OF PRESENT ILLNESS: Sloane Cm is a 63-y.o. female. HPI Noticed mass right side of throat a week ago - increased difficulty swallowing. Past Medical History: Diagnosis Date Hypertension 12/12/2007 Cancer (HCC) uterine cancer, s/p [place] 1995 Heart murmur no h/o echo, intermittent. History of breast surgery Hypertension Other postprocedural status(V45.89) benign both breasts biopsy Postmenopausal hysterectomy Restless legs syndrome (RLS) 12/12/2007 Restless legs syndrome (RLS) Uterine cancer (HCC) 2000 [facility],checked yearly. Family History Problem Relation Age of Onset Breast Cancer Sister dx early 40s, 2014 / bladder and lungs Cancer Sister breast then lung cancer Cancer Mother 76 ovarian CA Arthritis Mother Hypertension Mother Diabetes Mother Heart Father at age 62, [place] Arthritis Father Heart Disease Father Hypertension Father Stroke Father Diabetes Father No Known Problems Sister No Known Problems Child No Known Problems Child No Known Problems Child No Known Problems Sister No Known Problems Brother Anesth Problems No family history Clotting Disorder No family history Kidney Disease No family history Thyroid Disease No family history Current Outpatient Medications Medication Sig cyclobenzaprine (FLEXERIL) 10 MG Oral Tab TAKE 1 TABLET BY MOUTH EVERY DAY AT BEDTIME NEEDED FOR SPASM enalapril (VASOTEC) 10 MG Oral Tab Take 1 Tab by mouth DAILY. Multiple Vitamins-Minerals (PX COMPLETE SENIOR MULTIVITS PO) Take by mouth. Omeprazole 40 MG Oral CAPSULE DELAYED RELEASE Take 1 Cap by mouth DAILY. Rosuvastatin Calcium (CRESTOR) 10 MG Oral Tab Take 1 Tab by mouth DAILY. triamterene-hydrochlorothiazide (DYAZIDE/MAXZIDE) 37.5-25 MG Oral Tab TAKE 1 TABLET BY MOUTH EVERY DAY No current facility-administered medications for this visit. [...] 40.00 Types: Cigarettes Last attempt to quit: 2001 Years since quittin.6 Smokeless tobacco: Never Used Tobacco comment: 2000 Substance and Sexual Activity Alcohol use: Yes Comment: seldom Drug use: No Sexual activity: Yes Partners: Male Comment: Lifestyle Physical activity: Days per week: Not on file Minutes per session: Not on file Stress: Not on file Relationships Social connections: Talks on phone: Not on file Gets together: Not on file Attends mormonism service: Not on file Active member of [...] children Homemaker Routine exercise: Pets: 2 dogs Over the last 2 weeks, have you been feeling down, depressed, anxious, or hopeless?: 0 Over the past 2 weeks, have you felt little interest or pleasure in doing things ?: 0 REVIEW OF SYSTEMS: Review of Systems Constitutional: Positive for malaise/fatigue. Negative for chills, fever and weight loss. HENT: Negative for sore throat. Musculoskeletal: Negative for joint pain and myalgias. Skin: Negative for rash. Neurological: Negative for tingling and headaches. Objective PHYSICAL EXAM: VITALS: BP 148/82 | Pulse 96 | Temp 99.2 F (37.3 C) | Ht 5' 2" ( 1.575 m) | Wt 205 lb (93 kg) | BMI 37.49 kg/m Body mass index is 37.49 kg /m. Physical Exam Constitutional: She is oriented to person, place, and time. Vital signs are normal. She appears well-developed and well-nourished. HENT: Head: Normocephalic and atraumatic. Mouth/Throat: Oropharynx is clear and moist. Eyes: Pupils are equal, round, and reactive to light. EOM are normal. Neck: Normal range of motion. Pulmonary/Chest: Effort normal. She has no wheezes. Lymphadenopathy: Head (right side): No submental, no submandibular and no tonsillar adenopathy present. Head (left side): No submental, no submandibular and no tonsillar adenopathy present. She has no cervical adenopathy. Right cervical: No superficial cervical adenopathy present. Left cervical: No superficial cervical adenopathy present. Neurological: She is alert and oriented to person, place, and time. No cranial nerve deficit or sensory deficit. Skin: Skin is warm and dry. Capillary refill takes less than 2 seconds. No ecchymosis and no rash noted. No cyanosis or erythema. Psychiatric: She has a normal mood and affect. Vitals reviewed. ASSESSMENT / IMPRESSION: ICD-9-CM ICD-10-CM 1. Neck mass 784.2 R22.1 THYROID STIMULATING HORMONE T3, TOTAL FREE T4 US SOFT TISSUE HEAD NECK ULTRASOUND FREE T4 T3, TOTAL THYROID STIMULATING HORMONE 2. Malaise and fatigue 780.79 R53.81 R53.83 Plan Labs today Schedule ultrasound Follow up pending reports Author: PEE Dennis 03/24/2019 11:35 documented in this encounter Plan of Treatment Date Type Specialty Care Team Description 04/11/2019 Office Visit [facility] Chnatal Hare MD [address] [place] [address] [phone] 05/22/2019 Ancillary Procedure Radiology 05/22/2019 Ancillary Procedure Radiology 06/05/2019 Office Visit General Surgery Denzel Kearney MD [address] [place] [address] [phone] Name Type Priority Associated Diagnoses Date/Time THYROID STIMULATING HORMONE Lab Routine Neck mass 03/24/2019 11:26 AM EDT T3, TOTAL Lab Routine Neck mass 03/24/2019 11:26 AM EDT FREE T4 Lab Routine Neck mass 03/24/2019 11:26 AM EDT US SOFT TISSUE HEAD NECK Imaging Routine Neck mass 03/24/2019 11:58 AM ULTRASOUND EDT LIPID PROFILE Lab Routine 03/24/2019 11:26 AM EDT GLYCOHEMOGLOBIN A1C Lab Routine 03/24/2019 11:26 AM EDT COMPREHENSIVE METABOLIC Lab Routine 03/24/2019 11:26 AM PANEL EDT Name Type Priority Associated Diagnoses Order Schedule THYROID STIMULATING Lab Routine Neck mass Expected: 03/24/2019 HORMONE (Approximate), Expires: 09/20/2019 T3, TOTAL Lab Routine Neck mass Expected: 03/24/2019 (Approximate), Expires: 03/24/2020 FREE T4 Lab Routine Neck mass Expected: 03/24/2019 (Approximate), Expires: 03/24/2020 US SOFT TISSUE HEAD NECK Imaging Routine Neck mass Expected: 03/24/2019, ULTRASOUND Expires: 03/23/2020 Health Maintenance Due Date Last Done Comments MEDICARE ANNUAL WELLNESS 1955 VISIT [facility] IMMUNIZATION SERIES 2003 (1 of 2) LUNG CANCER SCREENING 10/26/2017 10/26/2016 (Declined) OSTEOPOROSIS SCREENING 2018 PNEUMOCOCCAL 65+YRS (1 of 2 2018 - PCV13) DIABETES SCREENING 02/16/2019 02/16/2018, 02/16/2018, 12/27/2017, Additional history exists MAMMOGRAM (SCREENING) 11/05/2019 11/04/2018, 08/24/2017, 08/24/2016, Additional history exists FALL RISK ASSESSMENT 11/29/2019 11/28/2018, 11/28/2018 LIPID DISORDER SCREENING 02/22/2020 02/21/2019, 09/23/2017, 05/05/2017, Additional history exists DEPRESSION SCREENING 03/24/2020 03/24/2019 COLONOSCOPY SCREENING 08/26/2027 08/26/2017, 10/04/2012 HPV IMMUNIZATION SERIES Aged Out No longer eligible based on patient's age to complete this topic MENINGOCOCCAL VACCINE IMM Aged Out No longer eligible based on patient's age to complete this topic documented as of this encounter Goals Goal Patient Goal Associated Recent Patient-Stated? Author Type Problems Progress Blood Pressure Blood 148/82 Ada Hare, < 150/90 Pressure (03/24/2019 Chantal Maciel, 10:58 AM EDT) Note: This is an individualized treatment (blood pressure) goal for Sloane Cm: Displayed above (on the left) is your goal for blood pressure control. Your most recent blood pressure is also shown above, on the right. You should try to achieve blood pressures that are lower than your goal listed above (on the left). Weight loss vs. 18 Lifestyle 9 (03/24/2019 10:58 AM No Chantal Hare, mo max (lbs) [...] of this encounter Implants Implanted Type Area Open End Spinning Operator Device Shelf Model / Identifier Expiration Date Serial / Lot Bone Cement, 40gm Full Dose - [id number] Left: DEPUY 03/08/2016 [id number] / Implanted: Qty: 1 on 11/29/2014 by Seth James MD at [facility] / [id number] Tibial Baseplate Std Lm/Rl Size 4 - [id number] Left: SONIA, NOEMÍ. 06/08 [id number] / Implanted: Qty: 1 on 11/29/2014 by Seth James MD at [facility] / [id number] Femoral Condyle Std Lm/Rl Size 3 - [id number] Left: SONIA, NOEMÍ. 2018 [id number] / Implanted: Qty: 1 on 11/29/2014 by Seth James MD at [facility] / [id number] Tibal Insert Onlay Size 4 , 8mm Thick - [id number] Left: SONIA, NOEMÍ. 09/08/2019 [id number] / Implanted: Qty: 1 on 11/29/2014 by Seth James MD at [facility] / [id number] Bone Cement, 40gm Full Dose - [id number] Right: DEPUY 03/08/2016 [id number] / Implanted: Qty: 1 on 01/17/2015 by Seth James MD at [facility] / [id number] Femoral Condyle Std Rm/Ll Size 3 - [id number] Right: SONIA, NOEMÍ. 12/06 [id number] / Implanted: Qty: 1 on 01/17/2015 by Seth James MD at [facility] / [id number] Tibal Baseplate Std Rm/Ll Size 3 - [id number] Right: SONIA, NOEMÍ. 02/05 [id number] / Implanted: Qty: 1 on 01/17/2015 by Seth James MD at [facility] / [id number] Tibal Insert Onlay Size 3, 9mm Thick - [id number] Right: SONIA, NOEMÍ. 08/08/2019 [id number] / Implanted: Qty: 1 on 01/17/2015 by Seth James MD at [facility] / [id number] documented as of this encounter Results Not on filedocumented in this encounter Visit Diagnoses Diagnosis Neck mass - Primary Swelling, mass, or lump in head and neck Malaise and fatigue Other malaise and fatigue documented in this encounter Insurance Payer Benefit Plan / Subscriber ID Effective Dates Phone Address Type Group MEDICARE MEDICARE PART xxxxxxxxxxx 2018-Prese Medicare A & B nt [employer] [facility] [employer] xxxxxxxxx 2015-Prese [employer] BCBS NATIONAL BCBS NATIONAL xxxxxxxxxxxx 2016-Presen Blue t Cross/Blue Shield Guarantor Name Account Type Relation to Date of Phone Billing Patient Address Sloane Cm Personal/Family 1955 [address] (Home) [address] [facility] [phone] [place], [place] (Work) [address] documented as of this encounter
[2019-04-30 10:59] VITALS: BP 140/74
[2019-04-30] MEDS ORDERED: Tetan/Diph/Pertus SYR(Tdap)* 0.5 ML SYR(BOOSTRIX) use SYR contains LATEX IM ONE (11:16)
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
== END 2019-04-30 11:31 | disposition home or self-care (01) ==
LOC: UCCORT 10:13
DX: L03.116 Cellulitis of left lower limb (principal); Z88.1 Allergy status to other antibiotic agents; Z87.891 Personal history of nicotine dependence; Z23 Encounter for immunization
CPT/HCPCS: 90471; 90715; 99211; G0463